=== PATIENT | female | born 1995 | race Caucasian/White ===

== ENCOUNTER 2024-06-19 09:40 | Inpatient (IN) | payer MEDICAID, OTHER ==
[2024-06-19 10:23] VITALS: BMI 22.9
[2024-06-19] MEDS ORDERED: Acetaminophen 500 MG TAB PO PRN (10:34)
[2024-06-19] MEDS ORDERED: Promethazine HCl 25 MG/ML VIAL IM PRN ×3 (10:34→20:47)
[2024-06-19] MEDS ORDERED: hydrALAZINE 20 MG/ML VIAL SLOW IVP PRN ×2 (10:34→20:47)
[2024-06-19] MEDS ORDERED: Lidocaine 1% (PF) 30 ML VIAL SC PRN (10:34)
[2024-06-19] MEDS ORDERED: Methylergonovine 0.2 MG/ML VIAL IM PRN (10:34)
[2024-06-19] MEDS ORDERED: Carboprost 250 MCG/ML AMP IM PRN (10:34)
[2024-06-19] MEDS ORDERED: HYDROcodone/Acetaminophen 5/325 mg Tablet PO PRN (10:34)
[2024-06-19] MEDS ORDERED: Diphenoxylate HCl/Atropine Tablet PO PRN (10:34)
[2024-06-19] MEDS ORDERED: fentaNYL 50 mcg/mL 1 mL Vial SLOW IVP PRN (10:34)
[2024-06-19] MEDS ORDERED: Ibuprofen 800 MG TAB PO PRN (10:34)
[2024-06-19] MEDS ORDERED: Misoprostol 200 MCG TAB PR PRN (10:34)
[2024-06-19] MEDS ORDERED: Tranexamic Acid 1,000 MG/10 ML VIAL IVP PRN (10:34)
[2024-06-19] MEDS ORDERED: Oxytocin 30 units/NS 500 ML 500 ML IV SCH (10:45)
[2024-06-19] MEDS ORDERED: Lactated Ringer's 1,000 ML IV SCH (10:45)
[2024-06-19 10:48] LABS: Hematocrit 32.8 % (34.9-44.5); Hemoglobin 11.6 g/dL (12.0-15.5); Mean Corpuscular HGB CONC 35.4 g/dL (32.0-36.0); Mean Corpuscular Hemoglobin 32.6 pg (27.0-33.0); Mean Corpuscular Volume 92.1 fL (81.6-98.3); Mean Platelet Volume 11.3 fL (7.4-10.4); Platelet Count 147 10x3/uL (150-450); RBC Distribution Width 13.1 % (11.5-14.5); Red Blood Cell (RBC) Count 3.56 10x6/uL (3.90-5.03)
[2024-06-19 11:14] LABS: Hep B Surf Ag - L&D Non-Reactive S/CO (NonReactive)
[2024-06-19 11:15] LABS: Syphilis Antibody Nonreactive (Nonreactive); Syphilis Antibody Index 0.05 S/CO (<1.00 Non-Reactive)
[2024-06-19] MEDS: fentaNYL/Ropivacaine Epidural 100 ML ONE (11:30)
[2024-06-19] MEDS ORDERED: Moisturizing Cream (Eucerin) 113 GM JAR TOP PRN (11:35)
[2024-06-19] MEDS ORDERED: ePHEDrine Sulfate 50 MG/10 ML VIAL SLOW IVP PRN (11:35)
[2024-06-19] MEDS ORDERED: Naloxone HCl 0.4 mg/ml Vial IVP PRN ×2 (11:35)
[2024-06-19] MEDS ORDERED: Ondansetron PF 4 MG/2 ML Vial IVP PRN ×2 (11:35→20:47)
[2024-06-19] MEDS ORDERED: diphenhydrAMINE 50 MG/ML VIAL IVP PRN (11:35)
[2024-06-19] MEDS ORDERED: Acetaminophen 325 MG TAB PO PRN (11:35)
[2024-06-19] MEDS ORDERED: Lactated Ringer's 500 ML IV PRN (11:35)
[2024-06-19] MEDS ORDERED: Communication Order-Pharmacy FS SCH (11:45)
[2024-06-19] MEDS ORDERED: fentaNYL 2 mcg/Ropivacaine 0.2% Epidural 100 ML CADD EPIDURAL SCH (11:45)
[2024-06-19] MEDS: Oxytocin 30 units/NS 500 ML 500 ML IV SCH (13:47)
[2024-06-19] MEDS: Ondansetron PF 4 MG/2 ML Vial IVP PRN (19:29)
[2024-06-19] MEDS ORDERED: diphenhydrAMINE 25 MG CAP PO PRN (20:47)
[2024-06-19] MEDS ORDERED: Benzocaine-Menthol 82.5 ML CAN TOP PRN (20:47)
[2024-06-19] MEDS ORDERED: Bisacodyl 10 MG SUPP PR PRN (20:47)
[2024-06-19] MEDS ORDERED: Milk Of Magnesia 30 ML UDCUP PO PRN (20:47)
[2024-06-19] MEDS ORDERED: Lanolin Ointment 7 GM TUBE TOP PRN (20:47)
[2024-06-19] MEDS: Docusate 100 MG CAP PO SCH (21:40)
[2024-06-19] MEDS: Ibuprofen 800 MG TAB PO SCH (21:40)
[2024-06-20] MEDS: HYDROcodone/Acetaminophen 5/325 mg Tablet PO PRN (01:13)
[2024-06-20] MEDS ORDERED: Bupivacaine 0.25% HCL 30 ML VIAL ONE (07:00)
[2024-06-20] MEDS: Boostrix 0.5 ML (Tdap) VIAL (>/=7 yrs of age) IM ONE (07:19)
[2024-06-20] MEDS: Ferrous Sulfate 325 MG TAB PO SCH (07:27)
[2024-06-20] MEDS: Prenatal Vitamin 1 TAB PO SCH (09:14)
[2024-06-20 20:23] VITALS: TEMP 98.2
[2024-06-21 07:53] VITALS: BP 102/67
== END 2024-06-21 17:15 | disposition home or self-care (01) | DRG 807 ==
LOC: CSHLD 09:40 → CSHPP 20:45
PROVIDERS: ADMIT Family Medicine; ATTEND Family Medicine
PROC: 10E0XZZ Delivery of Products of Conception, External Approach (ICD-10-PCS; principal; 2024-06-19)
PROC: 10907ZC Drainage of Amniotic Fluid, Therapeutic from Products of Conception, Via Natural or Artificial Opening (ICD-10-PCS; 2024-06-19)
DX: O99.284 Endocrine, nutritional and metabolic diseases complicating childbirth (principal); Z37.0 Single live birth; Z3A.39 39 weeks gestation of pregnancy; E03.9 Hypothyroidism, unspecified; Z79.890 Hormone replacement therapy; Z79.82 Long term (current) use of aspirin; Z79.899 Other long term (current) drug therapy
CPT/HCPCS: 51702; 85027; 86780; 86850; 86900; 86901; 87340; J0665; J2405; J2590